=== PATIENT | female | born 1995 | race Caucasian/White ===

== ENCOUNTER → 2018-07-27 | Outpatient (CLI) | payer BC, OTHER ==
--- NOTE | 2018-07-27 11:36 | Diagnostic Imaging Report ---
INDICATION: survey. TECHNIQUE: Multiple real-time grayscale images were obtained over the gravid uterus. COMPARISON: None FINDINGS: There is a single live fetus in breech presentation. heart rate was recorded at 146 beats per minute. Placenta is posterior. Amniotic fluid volume is normal. Cervical length is 4.1 cm. survey demonstrates kidneys, bladder and stomach to be unremarkable. The brain is unremarkable. There is a four-chamber heart. There is a three-vessel cord with normal insertion. The spine is unremarkable. Biometrical measurements are as follows: Biparietal 5.21 cm, age 21 weeks 6 days. Head circumference 19.21 cm, age 21 weeks 4 days. Abdominal circumference 17.30 cm, age 22 weeks 2 days. Femur length 3.68 cm, age 21 weeks 5 days. Sonographic estimate age: 21 weeks 6 days. Sonographic estimated date of delivery: 12/01/2018. Estimated Weight: 463 gm (+/- 68 gm). LMP percentile: 90%. heart rate: 146 beats per minute. number: 1 of 1. IMPRESSION: Single live IUP approximately 21 weeks 6 days gestational age with estimated date of confinement sonographically of 12/01/2018. No complicating features are seen. Dictated by: Dictated on workstation # [id number]
== END ==
LOC: RAD 10:03
PROVIDERS: ATTEND Obstetrics & Gynecology
DX: Z36.89 Encounter for other specified antenatal screening (principal); Z3A.21 21 weeks gestation of pregnancy
CPT/HCPCS: 76805

== ENCOUNTER 2018-11-26 01:39 | Inpatient (IN) | payer OTHER ==
[2018-11-26] VITALS (41 sets, daily range): BP systolic 95–148; BP diastolic 51–92
[~2018-11-26] VITALS: Ht 172.7 cm; Wt 89.9 kg
--- NOTE | 2018-11-26 01:45 | NUR ---
LEO LAUGHLIN presented to unit via WC from ED, accompanied by DIRECTOR INTERNAL COMMUNICATIONS AND S/O , with c/o FLUID LEAKAGE. LEO LAUGHLIN weighed, gowned, voided, and to bed. EFHM and TOCO applied, VS taken. LEO LAUGHLIN oriented to bed controls, call light, TV, heat, and A/C controls. ASSESSMENTS PER MEKA BARBOSA.
[2018-11-26] MEDS ORDERED: D5 LR IV SOLUTION 1,000 ML IV ONE (01:59)
[2018-11-26] MEDS: D5 LR IV SOLUTION 1,000 ML IV SCH ×2 (02:15→09:30)
[2018-11-26 02:42] LABS: BASOPHILS % (AUTO) 0 % (0-10); EOSINOPHILS # (AUTO) 0.2 10^3/uL (0.0-0.3); EOSINOPHILS % (AUTO) 2 % (0-10); HEMATOCRIT 35 % (35-52); HEMOGLOBIN 11.9 G/DL (11.5-16.0); LYMPHOCYTES # (AUTO) 2.4 X 10^3 (1.0-4.0); LYMPHOCYTES % (AUTO) 20 % (12-44); MEAN CORPUSCULAR HEMOGLOBIN 29 PG (25-34); MEAN CORPUSCULAR HGB CONC 34 G/DL (32-36); MEAN CORPUSCULAR VOLUME 85 FL (80-99); MONOCYTES # (AUTO) 0.9 X 10^3 (0.0-1.0); MONOCYTES % (AUTO) 7 % (0-12); NEUTROPHILS # (AUTO) 8.2 X 10^3 (1.8-7.8); NEUTROPHILS % (AUTO) 71 % (42-75); PLATELET COUNT 198 10^3/uL (130-400); RED CELL DISTRIBUTION WIDTH 12.2 % (10.0-14.5); WHITE BLOOD COUNT 11.7 10^3/uL (4.3-11.0)
[2018-11-26] MEDS ORDERED: PREN-53 PO (02:44)
[2018-11-26] MEDS ORDERED: OXYTOCIN/NORMAL SALINE 500 ML IV ONE (06:28)
[2018-11-26] MEDS ORDERED: OXYTOCIN/NORMAL SALINE 500 ML IV SCH ×2 (06:38→14:38)
[2018-11-26] MEDS ORDERED: SUFENTA 0.6MCG/ML BUPIVA 0.125 100 ML ONE (07:53)
--- NOTE | 2018-11-26 07:58 | History & Physical ---
History and Physical Date Seen by Provider: Nov 26, 2018 Time Seen by Provider: 07:55 This patient is a 23-year-old G1 white female patient of Dr. Delgadillo 4 whom I am covering. She presented last evening with complaint of rupture membranes at abo ut 9 p.m. she is ilana off and on through the night. Her cervix is 3 cm dilated and she has not demonstrated any pattern changer the last several hours. She is now on Pitocin for augmentation of labor. Her has been uncomplicated in a GBS culture was negative. She denies bleeding. She does feel baby moving. She reports a large gush of clear fluid at about 2100 last evening Allergies are none Medications are vitamins Medical social and surgical histories are per the antepartum record HEENT exam is normal Neck is supple no lymphadenopathy no thyromegaly Abdomen is gravid soft nontender nondistended Streaming show clubbing cyanosis. There is no Homans sign. Pelvic exam is per the admitting nurse showed a cervix 3 cm dilated 50 percent - 2 station with vertex presentation - patient presented with gross rupture membranes. Nitrazine was positive Laboratory Tests 11/26/18 02:33 Assessment and plan term at 38 weeks gestation with spontaneous rupture membranes now approaching 12 hours. Patient is on Pitocin to augment labor. Should she fail deliver by 18 hours post rupture we would go ahead with prophylactic antibiotics. Anticipation is for vaginal delivery although plans preparations are in place for if needed PROM at 38 weeks gestation Allergies and Home Medications Allergies Coded Allergies: No Known Drug Allergies (Unverified , 11/26/18) Home Medications Hiv089/Iron Fumarate/FA/Dss 1 Each Tablet, 1 EACH PO DAILY, (Reported) Patient Home Medication List Home Medication List Reviewed: Yes Clinical Quality Measures DVT/VTE Risk/Contraindication: Risk Factor Score Per Nursin RFS Level Per Nursing on Admit: 1=Low/No VTE PPX ARCELIA SPEARS MD Nov 26, 2018 07:58
[2018-11-26] MEDS ORDERED: IBUP-1780 PO (08:03)
[2018-11-26] MEDS ORDERED: DOCU-143 PO (08:03)
[2018-11-26] MEDS ORDERED: OXYC1TAB87 PO (08:03)
--- NOTE | 2018-11-26 08:03 | Discharge Instructions ---
Discharge Instructions Discharge Medications New, Converted or Re-Newed RX: RX on Chart Activity & Diet Discharge Diet: No Restrictions Activity as Tolerated: No Orders-Post D/C & Referrals Follow Up Appt: Call to make follow up appt. for patient in 4 weeks. Activity Per routine post vaginal delivery instructions. Please call in RX to patient pharmacy. Diet as tolerated Patient may shower or tub bathe as desired. ARCELIA SPEARS MD Nov 26, 2018 08:03
[2018-11-26] MEDS: CATHETER FLUSH 10 ML SYR IV SCH ×2 (08:20→14:55)
[2018-11-26] MEDS ORDERED: fentaNYL INJECTION 100 MCG/2 ML AMP ONE (08:24)
--- NOTE | 2018-11-26 08:40 | NUR ---
Shorty Nick ROLLED GLASS CROSSCUTTER and Student here for epidural placement. Procedure explained, consent reviewed and signed by anesthesia. Questions answered to patient's satisfaction. Time out taken to verify correct patient/procedure. Patient up to side of bed, assisted into sitting position. Betadine prep done x3 and sterile drape applied. Local done, see anesthesia record. Test dose given, see anesthesia record for drug and dosage. Epidural catheter secured in place. Epidural placement complete. Assisted back into bed, monitors adjusted. Epidural dosed, see anesthesia record. Epidural of Sufenta/Bupivicaine @ 12cc/hr stated per pump. Patient tolerated procedure well.
[2018-11-26] MEDS ORDERED: LACTATED RINGERS 1,000 ML IV ONE ×2 (09:07)
[2018-11-26] MEDS ORDERED: EPIDURAL (SUFENTA 0.6MCG/ML BUPIVA 0.125%) 100 ML BAG EPI PRN ×2 (09:15)
[2018-11-26] MEDS ORDERED: diphenhydrAMINE 50 MG/ML INJ (BENADRYL) IV PRN ×2 (09:15)
[2018-11-26] MEDS ORDERED: METOCLOPRAMIDE INJ 10 MG/2 ML (REGLAN) IV PRN ×2 (09:15)
[2018-11-26] MEDS ORDERED: NALOXONE 0.4 MG/ML 1 ML (NARCAN) VIAL IV PRN ×4 (09:15)
[2018-11-26] MEDS ORDERED: ONDANSETRON 4 MG/2 ML (SDV) Z0FRAN IV PRN ×2 (09:15)
[2018-11-26] MEDS ORDERED: LIDOCAINE/EPI 2% 1:200,00 (XYLOCAINE) 10 ML VIAL ONE (12:03)
[2018-11-26] MEDS ORDERED: KETOROLAC 30 MG/ML VIAL ONE ×2 (14:28→14:29)
[2018-11-26] MEDS: KETOROLAC 30 MG/ML VIAL IVP PRN ×2 (14:39→21:43)
[2018-11-26] MEDS ORDERED: IBUPROFEN 800 MG (MOTRIN) TAB PO SCH (14:45)
[2018-11-26] MEDS ORDERED: MEASLES,MUMPS,RUBELLA 1 EA INJ SC ONE (14:45)
[2018-11-26] MEDS ORDERED: oxyCODONE/APAP 5/325MG (PERCOCET 5) TABLET PO PRN (14:45)
[2018-11-26] MEDS ORDERED: BENZOCAINE/MENTHOL (DERMOPLAST) 56 ML CAN TP PRN (14:45)
[2018-11-26] MEDS ORDERED: ONDANSETRON 4 MG/2 ML (SDV) Z0FRAN IVP PRN (14:45)
[2018-11-26] MEDS ORDERED: TETANUS,DIPTH,PERTUSS P/F (BOOSTRIX) 0.5 ML VIAL IM ONE (14:45)
[2018-11-26] MEDS ORDERED: AMPICILLIN FOR IV USE 2,000 MG in WATER (STERILE) FOR INJECTION 14.8 ML IV ONE (15:00)
--- NOTE | 2018-11-26 17:20 | NUR ---
Patient transferred via wheelchair to room 309. Patient up to restroom, + void reported. Pericare completed and clean pad and panties applied. Patient ambulated back to bed without difficulty. Patient oriented to room. Patient verbalizes understanding and denies any current questions or concerns at this time.
[2018-11-26] MEDS ORDERED: AMPICILLIN FOR IV USE 1,000 MG in WATER (STERILE) FOR INJECTION 7.4 ML IV SCH (19:00)
--- NOTE | 2018-11-26 21:30 | NUR ---
assessment completed. pt denies any needs at this time. family at bedside.
[2018-11-26] MEDS: DOCUSATE SODIUM 100 MG (COLACE) CAP PO SCH (21:43)
--- NOTE | 2018-11-26 23:49 | OPERATIVE REPORT ---
DATE OF SERVICE: 11/26/2018 DELIVERY NOTE The patient delivered by a term spontaneous vaginal delivery of a viable male with Apgars of 8 and 9 at 1 and 5 minutes respectively, weight of 7 pounds and 4 ounces, time of 1359 and a cord blood pH that is pending. The delivered over a midline episiotomy performed at the patient's request when she could not expel the baby and her vaginal wall and hymenal ring were beginning to tear. The infant was bulb suctioned on delivery of the head and again on completion of delivery, the umbilical cord when pulseless was doubly clamped, father cut the cord and the baby was passed to mom's abdomen. The placenta delivered spontaneously Jin. It was a normal 3-vessel cord with a very long velamentous insertion of the vessels. Placenta was sent to pathology for permanent section. The cervix, vagina, rectum, and perineum were examined and found intact, except for the midline episiotomy with an extension of the episiotomy at the posterior vaginal wall that actually was occurring prior to the episiotomy. The entire complex was repaired with a single suture of 3-0 Vicryl Rapide in the usual manner without difficulty to good reapproximation and good hemostasis. Sponge and needle counts were correct on completion of delivery and repair. Estimated blood loss was around 250 mL. The patient tolerated the delivery well and the repair well and recovered in the LDR. The baby remained with the mom. Job ID: [id number] DocumentID: [id number] Dictated Date: 11/26/2018 14:23:05 Kettle Chipper Date: 11/26/2018 23:49:01 Dictated By: ARCELIA SPEARS MD
[2018-11-27] MEDS ORDERED: IBUPROFEN 800 MG (MOTRIN) TAB PO ONE (02:49)
[2018-11-27 03:16] VITALS: BP 117/65
[2018-11-27] MEDS: IBUPROFEN 800 MG (MOTRIN) TAB PO SCH ×3 (03:18→21:01)
[2018-11-27 07:25] VITALS: BP 115/71
--- NOTE | 2018-11-27 07:54 | Progress Note ---
Standard Progress Note Progress Notes/Assess & Plan Date Seen by a Provider: Nov 27, 2018 Time Seen by a Provider: 07:53 Progress/Assessment & Plan This patient is without complaint. She is ambulating, voiding, tolerating oral intake well has good pain control. Vital Signs 11/26/18 11/27/18 12:45 03:16 Temp 36.3 Pulse 76 Resp 16 B/P (MAP) 117/65 Pulse Ox 100 O2 Delivery Room Air Vital signs are stable. Patient is afebrile. Abdomen is benign. Fundus is firm below the umbilicus and nontender. Extremities show no clubbing cyanosis. There is no Homans sign. Assessment and plan day number 1 status post term spontaneous vaginal delivery at 38+ weeks gestation. Patient is doing well will have routine convalescence care Final Diagnosis 38 week spontaneous vaginal delivery ARCELIA SPEARS MD Nov 27, 2018 07:54
[2018-11-27] MEDS ORDERED: WITCH HAZEL(TUCKS) 40 EA JAR ONE (09:15)
[2018-11-27] MEDS ORDERED: WITCH HAZEL(TUCKS) 40 EA JAR TOP PRN (09:30)
[2018-11-27] MEDS: DOCUSATE SODIUM 100 MG (COLACE) CAP PO SCH ×2 (09:31→21:01)
[2018-11-27 12:44] VITALS: BP 106/71
[2018-11-27 17:25] VITALS: BP 110/65
[2018-11-27 21:16] VITALS: BP 107/73
[2018-11-28] MEDS: IBUPROFEN 800 MG (MOTRIN) TAB PO SCH ×3 (03:02→14:00)
[2018-11-28 03:03] VITALS: BP 112/79
--- NOTE | 2018-11-28 07:48 | Progress Note ---
Standard Progress Note Progress Notes/Assess & Plan Date Seen by a Provider: Nov 28, 2018 Time Seen by a Provider: 07:47 Progress/Assessment & Plan This patient is without complaint. She is ambulating, voiding, tolerating oral intake well has good pain control. Vital Signs 11/26/18 11/27/18 12:45 03:16 Temp 36.3 Pulse 76 Resp 16 B/P (MAP) 117/65 Pulse Ox 100 O2 Delivery Room Air Vital signs are stable. Patient is afebrile. Abdomen is benign. Fundus is firm below the umbilicus and nontender. Extremities show no clubbing cyanosis. There is no Homans sign. Assessment and plan day number 1 status post term spontaneous vaginal delivery at 38+ weeks gestation. Patient is doing well will have routine convalescence care November 28, 2018 Patient without complaint. She is ambulating, voiding, tolerating oral intake well has good pain control. Patient denies chest pain, denies shortness of breath, denies nausea vomiting, denies headache. Patient is requesting discharge home. Vital Signs 11/28/18 03:03 Temp 36.8 Pulse 75 Resp 16 B/P (MAP) 112/79 Pulse Ox 96 O2 Delivery Room Air Vital signs are stable. Patient is afebrile. Fundus is firm below the umbilicus and nontender. Extremities show no clubbing or cyanosis. There is no Homans sign. Assessment and plan day number 2 status post term spontaneous vaginal delivery at 38 weeks gestation. Patient will be discharged home with follow-up in clinic Final Diagnosis 38 week spontaneous vaginal delivery ARCELIA SPEARS MD Nov 28, 2018 07:48
[2018-11-28 08:00] VITALS: BP 110/76
[2018-11-28] MEDS: DOCUSATE SODIUM 100 MG (COLACE) CAP PO SCH (08:26)
--- NOTE | 2018-11-28 09:59 | NUR ---
Rx for Ibuprofen and Colace called to [facility]. Patient has own Pre-Gerardo vitamins at home. Rx for Percocet will be given to patient at discharge.
[2018-11-28 12:06] VITALS: BP 103/70
--- NOTE | 2018-11-28 16:49 | NUR ---
LEO LAUGHLIN demonstrates understanding of discharge instructions and accurately returns instructions upon questioning. Copy of Post-Discharge Instructions and Medication Discharge Instructions given to . LEO LAUGHLIN is able to manage continuing needs after discharge. Patients belongings returned to patient. Skin dry and intact; no breakdown noted. Patient discharged from 330- on 11/27/19 at 1630. LEO LAUGHLIN left floor via wheel chair,accompanied by and women services staff. no concerns voiced. Personal vehicle home.
== END 2018-11-28 16:30 | disposition home or self-care (01) | DRG 807 ==
LOC: WSo 01:39 → LDRP 01:40 → WSo 02:04 → LDRP 02:05
PROVIDERS: ADMIT Obstetrics & Gynecology; ATTEND Obstetrics & Gynecology
PROC: 10E0XZZ Delivery of Products of Conception, External Approach (ICD-10-PCS; principal; 2018-11-26)
PROC: 0W8NXZZ Division of Female Perineum, External Approach (ICD-10-PCS; 2018-11-26)
PROC: 0UQGXZZ Repair Vagina, External Approach (ICD-10-PCS; 2018-11-26)
DX: O42.02 Full-term premature rupture of membranes, onset of labor within 24 hours of rupture (principal); Z3A.38 38 weeks gestation of pregnancy; Z37.0 Single live birth
CPT/HCPCS: 36415; 85025; 86850; 86900; 86901; 99212

== ENCOUNTER 2022-03-18 04:50 | Emergency (ER) | payer OTHER ==
[~2022-03-18] VITALS: Ht 172.7 cm; Wt 72.6 kg
[~2022-03-18 04:50] MED LIST: DOCU-143 PO; IBUP-1780 PO; OXYC1TAB87 PO; PREN-53 PO
--- NOTE | 2022-03-18 05:25 | ED GU-Female ---
General Chief Complaint: OB < 20 WEEKS Stated Complaint: 9WKS PREG,PASSING BLOOD SINCE WEDNESDAY Source: patient Exam Limitations: no limitations (ELIZABETH LIPSCOMB MD) History of Present Illness Date Seen by Provider: Mar 18, 2022 Time Seen by Provider: 05:12 Initial Comments Patient is a 27yo female to the ER with a complaint of vaginal bleeding. States she is approximately 9 weeks . LMP 12/26/21. She is a . Had a miscarriage in October. Complains of heavy bleeding with clots. Mild cramping. She states that she had some blood work done in Dr Box office a few weeks ago and her levels "weren't doubling like they were supposed to". Her follow up was scheduled for 10weeks. denies recent illnesses. no dysuria. Has not taken anything for the cramping. Neg PMH. She has had an in-office U/s that showed IUP with heartbeat at 6 weeks. Timing/Duration: week Severity/Quality: cramping Location: suprapubic Radiation: none Activities at Onset: none Prior Genitourinary Problems: none Associated Symptoms: abdominal pain (cramping) (ELIZABETH LIPSCOMB MD) Allergies and Home Medications Allergies Coded Allergies: No Known Drug Allergies (Unverified , 11/26/18) Patient Home Medication List Home Medication List Reviewed: Yes (ELIZABETH LIPSCOMB MD) Cephalexin (Cephalexin) 500 Mg Tablet, 500 MG PO BID Prescribed by: BOB DIAMOND on 03/18/22 0701 Docusate Sodium (Colace) 100 Mg Capsule, 100 MG PO BID Prescribed by: ARCELIA BLAIR on 11/26/18 0803 Ibuprofen (Ibuprofen) 800 Mg Tablet, 800 MG PO Q6H PRN for PAIN Prescribed by: ARCELIA BLAIR on 11/26/18 0803 Oxycodone HCl/Acetaminophen (Percocet 5-325 mg Tablet) 1 Each Tablet, 1 TAB PO Q4H Prescribed by: ARCELIA BLAIR on 11/26/18 0803 Mtq014/Iron Fumarate/FA/Dss ( 19 Tablet) 1 Each Tablet, 1 EACH PO DAILY, (Reported) Entered as Reported by: DEMI BURTON on 11/26/18 0244 Review of Systems Review of Systems Constitutional: see HPI EENTM: no symptoms reported Respiratory: no symptoms reported Cardiovascular: no symptoms reported Gastrointestinal: other (cramping) Genitourinary: denies dysuria : Yes LMP: Dec 26, 2021 Musculoskeletal: no symptoms reported Skin: no symptoms reported (ELIZABETH LIPSCOMB MD) Past Yhhscne-Mbbmud-Npvdym Hx Family Medical History Patient reports no known family medical history. Physical Exam Vital Signs Vital Signs - First Documented 03/18/22 05:00 Temp 36.3 Pulse 108 Resp 18 B/P (MAP) 122/83 (96) Pulse Ox 100 O2 Delivery Room Air (BOB DIAMOND MD) Vital Signs Capillary Refill : (ELIZABETH LIPSCOMB MD) Height, Weight, BMI Height: 5'8.00" Weight: 198lbs. 2.0oz. 89.539899hd; 30.1 BMI Method: General Appearance: WD/WN, mild distress (tearful, crying) HEENT: PERRL/EOMI Cardiovascular: regular rate, rhythm Respiratory: no respiratory distress, no accessory muscle use Gastrointestinal: normal bowel sounds, non tender, soft Extremities: normal range of motion, normal inspection Neurologic/Psychiatric: alert, oriented x 3, other (tearful/upset) Skin: normal color, warm/dry (ELIZABETH LIPSCOMB MD) Progress/Results/Core Measures Suspected Sepsis SIRS Temperature: Pulse: Respiratory Rate: Laboratory Tests 03/18/22 05:40: White Blood Count 13.9H Blood Pressure / Mean: Laboratory Tests 03/18/22 05:40: Platelet Count 208 (ELIZABETH LIPSCOMB MD) Results/Orders Lab Results Laboratory Tests Test 03/18/22 05:40 03/18/22 05:45 Range/Units White Blood Count 13.9 H 4.3-11.0 10^3/uL Red Blood Count 4.33 3.80-5.11 10^6/uL Hemoglobin 12.6 11.5-16.0 g/dL Hematocrit 36 35-52 % Mean Corpuscular Volume 84 80-99 fL Mean Corpuscular Hemoglobin 29 25-34 pg Mean Corpuscular Hemoglobin Concent 35 32-36 g/dL Red Cell Distribution Width 11.9 10.0-14.5 % Platelet Count 208 130-400 10^3/uL Mean Platelet Volume 9.6 9.0-12.2 fL Immature Granulocyte % (Auto) 1 % Neutrophils (%) (Auto) 81 H 42-75 % Lymphocytes (%) (Auto) 12 12-44 % Monocytes (%) (Auto) 6 0-12 % Eosinophils (%) (Auto) 2 0-10 % Basophils (%) (Auto) 0 0-10 % Neutrophils # (Auto) 11.2 H 1.8-7.8 10^3/uL Lymphocytes # (Auto) 1.6 1.0-4.0 10^3/uL Monocytes # (Auto) 0.8 0.0-1.0 10^3/uL Eosinophils # (Auto) 0.2 0.0-0.3 10^3/uL Basophils # (Auto) 0.0 0.0-0.1 10^3/uL Immature Granulocyte # (Auto) 0.1 0.0-0.1 10^3/uL Human Chorionic Gonadotropin, Quant 68627 H <5 MIU/ML Urine Color RED H Urine Clarity CLOUDY Urine pH 7.0 5-9 Urine Specific [place] 1.015 L 1.016-1.022 Urine Protein 3+ H NEGATIVE Urine Glucose (UA) TRACE H NEGATIVE Urine Ketones 1+ H NEGATIVE Urine Nitrite POSITIVE H NEGATIVE Urine Bilirubin NEGATIVE NEGATIVE Urine Urobilinogen 4.0 < = 1.0 MG/DL Urine Leukocyte Esterase 2+ H NEGATIVE Urine RBC (Auto) 3+ H NEGATIVE Urine RBC TNTC H /HPF Urine WBC 0-2 /HPF Urine Crystals NONE /LPF Urine Bacteria NEGATIVE /HPF Urine Casts NONE /LPF Urine Mucus NEGATIVE /LPF Urine Culture Indicated YES (BOB DIAMOND MD) Vital Signs/I&O 03/18/22 05:00 Temp 36.3 Pulse 108 Resp 18 B/P (MAP) 122/83 (96) Pulse Ox 100 O2 Delivery Room Air (BOB DIAMOND MD) Vital Signs/I&O Capillary Refill : (ELIZABETH LIPSCOMB MD) Progress Note : Progress Note 0600: I assumed care of the patient from Dr. Lipscomb pending all labs and UA. I have reviewed chart and history. Patient is here with concerns for miscarriage. Bedside ultrasound performed by Dr. Lipscomb this morning did not show heart tones or movement and this is likely incomplete miscarriage. She does follow with Dr. SPEARS. She previously had miscarriage in October of last year. We are awaiting CBC, UA and hCG quantitative level. Monitor patient. 0658: Patient is be positive by history does not need RhoGAM. White count is elevated at just over 13 with normal hemoglobin at 12.2. hCG quant level is elevated at 35,000. We do not have a history on that for this pregna ncy although Dr. SPEARS does at his office. I did offer her formal ultrasound to the patient and she states that she will just follow-up with Dr. SPEARS. She does have urinary tract infection with nitrite positive findings. We will initiate treatment as outpatient for that. Discharged home with return precautions. Patient verbalized understanding of instructions and agreement with plan. Prescription given and OTC meds discussed. (BOB DIAMOND MD) Departure Impression Primary Impression: Urinary tract infection Qualified Codes: N30.01 - Acute cystitis with hematuria Additional Impression: Incomplete miscarriage Disposition: HOME, SELF-CARE Condition: Stable Departure-Patient Inst. Decision time for Depature: 07:00 (BOB DIAMOND MD) Referrals: ARCELIA SPEARS MD NO,LOCAL PHYSICIAN (PCP) Primary Care Physician Patient Instructions: Urinary Tract Infection, Adult (DC), Miscarriage (DC) Add. Discharge Instructions: All discharge instructions reviewed with patient and/or family. Voiced understanding. Your hCG quantitative level today was 35,762. Please call and follow-up with Dr. SPEARS for recheck and further evaluation regarding concerns for miscarriage. Return for worse pain, bleeding greater than 2 large pads per hour for more than 2 hours, weakness, breathing problems, fever or other concerns as needed. You do have a urinary tract infection. Take medications as directed. You may take Tylenol/acetaminophen 1000 mg (2 extra strength Tylenol) every 6-8 hours as needed for pain. You may take ibuprofen 600 mg every 8 hours as needed for pain. Scripts Cephalexin (Cephalexin) 500 Mg Tablet 500 MG PO BID, #10 TAB 0 Refills Prov: BOB DIAMOND MD 03/18/22 Copy Copies To 1: ARCELIA SPEARS MD, KATHRYN M MD Jan 4, 2023 05:25 BOB DIAMOND MD Mar 18, 2022 06:31
[2022-03-18 05:56] LABS: BASOPHILS % (AUTO) 0 % (0-10); EOSINOPHILS # (AUTO) 0.2 10^3/uL (0.0-0.3); EOSINOPHILS % (AUTO) 2 % (0-10); HEMATOCRIT 36 % (35-52); HEMOGLOBIN 12.6 g/dL (11.5-16.0); LYMPHOCYTES # (AUTO) 1.6 10^3/uL (1.0-4.0); LYMPHOCYTES % (AUTO) 12 % (12-44); MEAN CORPUSCULAR HEMOGLOBIN 29 pg (25-34); MEAN CORPUSCULAR HGB CONC 35 g/dL (32-36); MEAN CORPUSCULAR VOLUME 84 fL (80-99); MEAN PLATELET VOLUME 9.6 fL (9.0-12.2); MONOCYTES # (AUTO) 0.8 10^3/uL (0.0-1.0); MONOCYTES % (AUTO) 6 % (0-12); NEUTROPHILS # (AUTO) 11.2 10^3/uL (1.8-7.8); NEUTROPHILS % (AUTO) 81 % (42-75); PLATELET COUNT 208 10^3/uL (130-400); WHITE BLOOD COUNT 13.9 10^3/uL (4.3-11.0)
[2022-03-18 05:57] LABS: BILIRUBIN,URINE NEGATIVE (NEGATIVE); CLARITY,URINE CLOUDY; COLOR,URINE RED; GLUCOSE, URINE (UA) TRACE (NEGATIVE); KETONES,URINE 1+ (NEGATIVE); LEUKOCYTE ESTERASE ,URINE 2+ (NEGATIVE); NITRITE,URINE POSITIVE (NEGATIVE); PROTEIN,URINE 3+ (NEGATIVE)
[2022-03-18 06:00] LABS: BACTERIA,URINE NEGATIVE /HPF; RBC,URINE TNTC /HPF; WBC,URINE 0-2 /HPF
[2022-03-18] MEDS ORDERED: CEPH500T PO (07:01)
[2022-03-18 07:09] VITALS: BP 118/92
== END 2022-03-18 07:09 | disposition home or self-care (01) ==
LOC: EDUNIT# 04:50 → ER 04:54
DX: O23.41 Unspecified infection of urinary tract in pregnancy, first trimester (principal); O03.4 Incomplete spontaneous abortion without complication; N39.0 Urinary tract infection, site not specified; Z28.310 Unvaccinated for COVID-19; Z3A.09 9 weeks gestation of pregnancy
CPT/HCPCS: 36415; 81000; 84702; 85025; 87088

== ENCOUNTER 2022-10-30 05:32 | Outpatient (CLI) | payer BC, OTHER ==
[~2022-10-30] VITALS: Ht 172.7 cm; Wt 78.6 kg
[~2022-10-30 05:32] MED LIST changes: +CEPH500T PO
[2022-10-30] MEDS ORDERED: ASPI-999 PO (15:27)
== END 2022-10-30 16:00 | disposition home or self-care (01) ==
LOC: PREOP 05:32
PROVIDERS: ATTEND Obstetrics & Gynecology
DX: Z01.818 Encounter for other preprocedural examination (principal)

== ENCOUNTER 2022-11-02 06:58 | Day surgery (SDC) | payer BC ==
[2022-11-02] VITALS (10 sets, daily range): BP systolic 97–113; BP diastolic 58–78
[~2022-11-02 06:58] MED LIST changes: +ASPI-999 PO
--- NOTE | 2022-11-02 07:22 | Progress Note-Pre Operative ---
Pre-Operative Progress Note Date H&P Reviewed: Nov 02, 2022 Time H&P Reviewed: 07:00 History & Physical: H&P Reviewed, No changes noted Pre-Operative Diagnosis: Missed AB recurrent AB LINK HINSON DO Nov 02, 2022 07:22
--- NOTE | 2022-11-02 07:23 | OB/GYN Operative Report ---
Operative Report Date of Procedure:Nov 02, 2022 Preoperative Diagnosis: Missed AB/Recurrent AB Postoperative Diagnosis: Same Name of the Procedure: Suction D&C Surgeon: Link Hinson Printer Repair Technician(s): [none] Anesthesia: GLMA Indications for Procedure: IUP @10wk with demise Findings of the Procedure: POC Complications: None Disposition: Counts correct x2 Stable to PACU Description of the Procedure: Informed consent was obtained and signed and patient was taken to OR Scott. 3 . She was placed under general LMA anesthesia placed in the dorsal lithotomy position prepped and draped in usual sterile fashion.A timeout was performed. A pelvic exam under anesthesia revealed a slightly retroverted enlarged uterus no adnexal masses. A weighted speculum was placed into the posterior vaginal vault and single-tooth tenaculum was used to grasp the Anterior lip the cervix. Using a tissue forceps the products of conception were grasped and some of the chorionic villi were sent for Anora testing per the patient's request. Using a an 8 Martiniquais curved suction catheter the products of conception were evacuated from the uterine cavity with several passes. A blunt curette was used to fill the edges of the uterine cavity there is noted to be little bit more products of conception which the suction catheter removed with 2 more passes. The suction catheter was then cleared out and the single-tooth and weighted speculum were removed. Pitocin was given intravenously and the uterus was massaged until it was clamped down and firmed up nicely. The patient was taken to recovery room in stable condition. The estimated blood loss was approximately 500 cc fluids were 1700 cc urine output was 50 cc. All my counts were correct x2. LINK HINSON DO Nov 02, 2022 07:23
[2022-11-02] MEDS: LACTATED RINGERS 1,000 ML 1,000 ML IV PRN ×2 (07:24→08:35)
[2022-11-02 07:31] LABS: BASOPHILS % (AUTO) 0 % (0-10); EOSINOPHILS # (AUTO) 0.3 10^3/uL (0.0-0.3); EOSINOPHILS % (AUTO) 4 % (0-10); HEMATOCRIT 36 % (35-52); HEMOGLOBIN 12.3 g/dL (11.5-16.0); LYMPHOCYTES # (AUTO) 2.1 10^3/uL (1.0-4.0); LYMPHOCYTES % (AUTO) 25 % (12-44); MEAN CORPUSCULAR HEMOGLOBIN 29 pg (25-34); MEAN CORPUSCULAR HGB CONC 34 g/dL (32-36); MEAN CORPUSCULAR VOLUME 86 fL (80-99); MEAN PLATELET VOLUME 9.7 fL (9.0-12.2); MONOCYTES # (AUTO) 0.5 10^3/uL (0.0-1.0); MONOCYTES % (AUTO) 6 % (0-12); NEUTROPHILS # (AUTO) 5.4 10^3/uL (1.8-7.8); NEUTROPHILS % (AUTO) 64 % (42-75); PLATELET COUNT 174 10^3/uL (130-400); WHITE BLOOD COUNT 8.4 10^3/uL (4.3-11.0)
[2022-11-02] MEDS ORDERED: fentaNYL INJECTION 100 MCG/2 ML VIAL ONE (07:33)
[2022-11-02] MEDS ORDERED: MIDAZOLAM INJ 2 MG/2 ML VIAL ONE (07:33)
[2022-11-02] MEDS ORDERED: proPOfol INJECTION 200 MG/20 ML VIAL IV ONE (07:51)
[2022-11-02] MEDS ORDERED: LIDOCAINE PF 2% 5 ML VIAL ONE (07:52)
[2022-11-02] MEDS ORDERED: dexAMETHasone INJ 10 MG/ML 1 ML VIAL ONE (07:52)
[2022-11-02] MEDS ORDERED: ONDANSETRON INJECTION 4 MG/2 ML (SDV) ONE (07:52)
[2022-11-02] MEDS ORDERED: OXYTOCIN INJECTION 10 UNIT/ML VIAL ONE ×2 (08:02→08:03)
[2022-11-02] MEDS ORDERED: SEVOFLURANE (ULTANE) 15 ML INHAL SOLN ONE (08:03)
[2022-11-02] MEDS ORDERED: IBUP-1773 PO (08:17)
--- NOTE | 2022-11-02 08:18 | Discharge Inst-Simple/Standard ---
Discharge Inst-Standard Reconcile Patient Problems Problems Reviewed?: Yes Discharge Medications New, Converted or Re-Newed RX: Call to Patients Pharmacy Patient Instructions/Follow Up Plan of Care/Instructions/FU: pelvic rest Follow up 2wk Activity as Tolerated: Yes Discharge Diet: Regular Diet LINK HINSON DO Nov 02, 2022 08:18
== END 2022-11-02 10:05 | disposition home or self-care (01) ==
LOC: SDC 06:58
PROVIDERS: ATTEND Obstetrics & Gynecology
DX: O02.1 Missed abortion (principal); N96 Recurrent pregnancy loss; Z28.310 Unvaccinated for COVID-19
CPT/HCPCS: 36415; 85025; 86850; 86900; 86901; 87081